=== PATIENT | female | born 1970 | race Caucasian/White ===

== ENCOUNTER 2019-12-16 10:55 | Outpatient (CLI) | payer OTHER, SELFPAY ==
--- NOTE | 2019-12-16 11:09 | MM_ITS ---
WS: [id number] BILATERAL DIGITAL SCREENING MAMMOGRAPHY WITH CAD CLINICAL INFORMATION: SCREENING HISTORY: Screening mammogram. No current complaints. COMPARISON: July 04, 2014 TECHNIQUE: Bilateral CC and MLO views. FINDINGS: Scattered fibroglandular densities bilaterally. No suspicious focal mass, asymmetry, calcifications, or architectural distortion. No evidence of malignancy. MM/[place] [id number] IMPRESSION: BI-RADS: 1-Negative FOLLOW UP: 1 Year Follow-up Recommend return to annual screening mammography.
== END 2019-12-16 10:56 | disposition home or self-care (01) ==
PROVIDERS: PCP Family Medicine; Visit Provider Nurse Practitioner Family
DX: Z12.31 Encounter for screening mammogram for malignant neoplasm of breast (principal)
CPT/HCPCS: 77067

== ENCOUNTER → 2020-08-24 09:24 | Outpatient (BNVA) | payer SELFPAY | PROVIDERS: PCP Family Medicine; Visit Provider Internal Medicine | DX: E03.9 Hypothyroidism, unspecified (principal); E28.2 Polycystic ovarian syndrome; E55.9 Vitamin D deficiency, unspecified; E61.8 Deficiency of other specified nutrient elements; M79.10 Myalgia, unspecified site | CPT/HCPCS: 99205 ==

== ENCOUNTER 2021-05-01 07:55 | Outpatient (CLI) | payer BC, SELFPAY ==
--- NOTE | 2021-05-01 08:00 | USCV_ITS ---
Alivia Gonzalez Age: 51 Gender: F : 1970 Exam Date: 05/01/2021 08:14 Ordering Phys: Naveed Valdez MD ([email or web address]) Technologist: Mahsa Will Exam Location[place] [facility] [place] Indication: SYNCOPE BP: 124 / 70 HR: 48 Rhythm: Other Technical Quality: Adequate MEASUREMENTS (Male / Female) Normal Values 2D ECHO LV Diastolic Diameter PLAX 4.9 cm 4.2 - 5.9 / 3.9 - 5.3 cm LV Systolic Diameter PLAX 3.2 cm IVS Diastolic Thickness 1.1 cm 0.6 - 1.0 / 0.6 - 0.9 cm IVS Systolic Thickness 1.5 cm LVPW Diastolic Thickness 1.6 cm 0.6 - 1.0 / 0.6 - 0.9 cm LVPW Systolic Thickness 1.8 cm LVOT Diameter 2.0 cm LV Ejection Fraction 2D Teich 62.5 % LV Ejection Fraction MOD 2C 53.7 % LV Ejection Fraction 2C AL 53.0 % LA Diameter 3.4 cm LA Width 2.6 cm LA Height 4.1 cm RA Width 2.9 cm RA Height 4.6 cm Aorta at Sinotubular Diameter 2.0 cm M-MODE Aortic Annulus Diameter 2.3 cm LA Ao Ratio MM 1.6 MV E Point Septal Separation 0.4 cm DOPPLER AV Peak Velocity 167.0 cm/s LVOT Peak Velocity 72.0 cm/s AV Area Cont Eq vti 1.3 cm squared AV Area Cont Eq pk 1.4 cm squared MV Area PHT 3.7 cm squared Mitral E to A Ratio 0.6 MV E' Velocity 35.0 cm/s Mitral E to MV E' Ratio 5.9 Mitral E to LV E' Lateral Ratio 5.8 Mitral E to LV E' Septal Ratio 6.0 TR Peak Velocity 238.9 cm/s TR Peak Gradient 22.8 mmHg TR Mean Velocity 204.3 cm/s TR Mean Gradient 17.1 mmHg TR Velocity Time Integral 87.7 cm Right Atrial Pressure 3.0 mmHg Pulmonary Artery Systolic Pressu 25.8 mmHg PV Peak Velocity 98.0 cm/s RV Acceleration Time 0.1 s RV Ejection Time 0.3 s RV AcT/ET 0.4 FINDINGS Left Ventricle Normal left ventricular size and systolic function, EF 62 %. No regional wall motion abnormalities. Right Ventricle The right ventricle is normal in size and function. Right Atrium The right atrium is normal in size. Left Atrium The left atrium is normal in size. Mitral Valve Trace mitral valve regurgitation. Aortic Valve No gross abnormalities noted Tricuspid Valve Trace tricuspid valve regurgitation. Pulmonic Valve No gross abnormalities noted Pericardium Normal pericardium without effusion. Aorta Normal ascending aorta dimension. CONCLUSIONS Normal left ventricular size and systolic function, EF 62 %. No regional wall motion abnormalities. Trace of tricuspid and mitral valve regurgitation. Estimated pulmonary artery peak systolic pressure of 26 mmHg There is no pericardial effusion. There are no intracardiac masses. No previous study is available for comparison. Dr Naveed Valdez MD [facility] (Electronically Signed) Final Date: 01 May 2021 20:42 S
== END 2021-05-01 07:56 | disposition home or self-care (01) ==
LOC: US 07:58
PROVIDERS: PCP Nurse Practitioner Family; Visit Provider Internal Medicine Cardiovascular Disease
DX: R06.00 Dyspnea, unspecified (principal); R55 Syncope and collapse; I08.1 Rheumatic disorders of both mitral and tricuspid valves
CPT/HCPCS: 93306

== ENCOUNTER → 2021-05-10 15:44 | Outpatient (BNVA) | payer BC, SELFPAY | PROVIDERS: PCP Nurse Practitioner Family; Visit Provider Internal Medicine Cardiovascular Disease | DX: R60.9 Edema, unspecified (principal) | CPT/HCPCS: 80048; 83880 ==

== ENCOUNTER 2021-06-28 06:54 | Outpatient (CLI) | payer BC, SELFPAY ==
[2021-06-28 07:20] VITALS: BMI 42.0
--- NOTE | 2021-06-28 07:20 | ECG_ITS ---
[facility] Test Date: 2021-06-28 Pat Name: Alivia Gonzalez Department: Room: Gender: Female Ceramic Design Engineer: Elena Chappell : 1970 Requested By: Naveed Valdez Order Number: [id number] Pushpa MD: Naveed Valdez M.D. Interpretive Statements NAME OF STUDY: EXERCISE SESTAMIBI STRESS TEST INDICATION: Chest Pain, PROCEDURE: The baseline electrocardiogram showed [normal sinus rhythm with some nonspecific T wave changes. Poor R wave progression. Low voltage complexes in the precordial leads at the baseline, the patient's blood pressure was 159/93 mm Hg with a heart rate of sixty-four. The patient exercised for 4 minutes and 54 seconds on a standard [place] protocol. Patient attained a maximum heart rate of 167 beats per minute(97% of the maximum predicted heart rate) with a blood pressure at the peak exercise of 181/112 mm Hg. The EKG at the peak exercise revealed no significant changes. Patient did not have any chest pain or any significant arrhythmis with the exercise Sestamibi was injected 1 minute prior to the peak exercise During the recovery phase, there were no new changes. Blood pressure at the end of the recovery phase was 138/98 mm Hg with a heart rate of 87 per minute. CONCLUSION: 1. No significant EKG changes with the [treadmill exercise 2. No exercise-induced chest pain or cardiac arrhythmia 3. Impaired exercise tolerance, attained a maximum of 7.0 METs 4. Sestamibi/Sestamibi perfusion results pending; see separate report. Electronically Signed On 06-29-2021 11:30:34 FLOATLIGHT POWDER MIXER by Naveed Valdez M.D. [email or web address]/store/[id number]
--- NOTE | 2021-06-28 07:21 | NMCV_ITS ---
NM luke perf SPECT r/s* [id number] Alivia Gonzalez Age: 51 Gender: F : 1970 Exam Date: 06/28/2021 08:05 Ordering Phys: Naveed Valdez MD ([email or web address]) Technologist: LYNNETTE Hinds Exam Location: [facility] Indications: CHEST PAIN STRESS TEST Please see separate stress test report in [facility] for full findings IMAGE PROTOCOL Rest/Stress 1 Exercise Day Radiopharmaceutical Dose (mCi) Administration Site Administered by Rest: Tc-99m 10.7 IV LYNNETTE Marcial Sestamibi Stress:Tc-99m 32.6 IV LYNNETTE Marcial Sestamibi Rest: 28-Jun-2021 60 Discovery 630 Stress: 28-Jun-2021 15 Discovery 630 Radiopharmaceutical was injected at 94 % maximum heart rate. Images obtained in supine and prone position. SPECT RESULTS Technical Quality: Excellent Raw Data Analysis: Normal Image Corrections: No attenuation or motion correction applied Summed Stress Score: 0 Summed Rest Score: 1 Summed Difference Score: 0 PERFUSION FINDINGS Small areas of decreased tracer uptake were noted in the apical region. No significant reversibility was noted in these regions. FUNCTIONAL RESULTS (calculated via Gated SPECT) Stress Image LV EF (%): 82 Stress EDV (mL):76 TID: 0.75 Stress ESV (mL):14 FUNCTIONAL FINDINGS: Segmental wall motion analysis revealing no gross wall motion abnormalities IMPRESSIONS 1. Myocardial perfusion imaging revealing small areas of persistent decreased tracer uptake in the apical regions, most likely representing attenuation artifact. 2. Normal LV ejection fraction of 82%. 3. LV wall motion analysis revealing no gross wall motion abnormalities. 4. Normal LV volume. No significant coronary ischemia, based on the above findings Dr Navede Valdez MD [facility] (Electronically Signed) Final Date: 28 June 2021 20:03 S
[2021-06-28 09:12] VITALS: BP 138/98; PULSE 87
== END 2021-06-28 06:55 | disposition home or self-care (01) ==
LOC: CDL 06:56
PROVIDERS: PCP Nurse Practitioner Family; Visit Provider Internal Medicine Cardiovascular Disease
DX: R06.09 Other forms of dyspnea (principal); R94.31 Abnormal electrocardiogram [ECG] [EKG]; R07.9 Chest pain, unspecified
CPT/HCPCS: 78452; 93017; A9500

== ENCOUNTER 2022-05-01 21:52 | Emergency (ER) | payer BC, SELFPAY ==
[2022-05-01 21:57] VITALS: BP 174/107; PULSE 96; RESP 20; TEMP 36.8; O2SAT 97; BMI 39.3
[2022-05-01 22:11] VITALS: BP 163/99; PULSE 108; RESP 16; O2SAT 96
--- NOTE | 2022-05-01 22:15 | ED_ITS ---
HPI - Allergic Reaction General: Chief complaint: Allergic Reaction Stated complaint: allergic rxn? Time Seen by Provider: 05/01/22 22:09 Source: patient Mode of arrival: ambulatory Limitations: no limitations History of Present Illness: HPI narrative: 52-year-old female states that she been out working cattle elevated readings and noticed about 2 hours ago started having itchiness especially arm and back states she is got worsening urticaria does have urticaria to her whole back states she felt some throat swelling she has no difficulty talking swallowing or speaking here no noticeable throat swelling. She has never had an allergic reaction before denies any worsening proving factors. Associated symptoms: Deny abdominal pain, nausea or vomiting Review of Systems Const: Denies: fever(s), chills, body aches or change in appetite Eyes: Denies: blurry vision or eye discomfort ENMT: Denies: throat pain or dental pain Card: Denies: chest pain Resp: Denies: dyspnea GI: Denies: abdominal pain, nausea, vomiting or diarrhea : Denies: dysuria Musc: Denies: neck pain or back pain Skin/Breast: Reports: rash and pruritus Neuro: Denies: headache(s) Psych: Denies: depression Tanner/Lymph: Denies: easy bruising All/Imm: Denies: urticaria PFSH ED PFSH: Medical History Asthma Hypothyroidism PCOS (polycystic ovarian syndrome) Peripheral edema Syncope and Collapse Surgical History H/O: hysterectomy Family History Mother CAD (coronary artery disease) Diabetes PCOS (polycystic ovarian syndrome) Afib Cancer Hypertension Hypothyroidism Myocardial infarction Father Afib Hypertension Brother Myocardial infarction Diabetes Denies family history of Clotting disorder Dementia Chronic kidney disease (CKD) Suicide Anesthesia complication Bleeding disorder Lung disease Stroke Social History Smoking and tobacco status: never smoked Second hand smoke exposure: No Alcohol intake: current Alcohol type: wine Physical Exam Const: COMMON NORMALS: no acute distress, patient oriented x3 and healthy appearing HENMT: COMMON NORMALS: normocephalic and atraumatic HEAD & SCALP: normocephalic and atraumatic Eye: COMMON NORMALS: Equal, round and reactive pupils present and EOMs intact bilaterally PUPIL: Yes Equal, round and reactive pupils present Neck/C-Spine: COMMON NORMALS: full ROM and supple Chest: COMMONS NORMALS: normal inspection of the chest and normal palpation of entire chest wall Resp: COMMON NORMALS: normal respiratory effort, No retractions, No use of accessory muscles and clear to auscultation bilaterally AUSCULTATION: clear to auscultation bilaterally Cardio: COMMON NORMALS: regular rate, regular rhythm and No murmurs present (Cardio) RATE: regular rate RHYTHM: regular rhythm GI: COMMON NORMALS: Normal to inspection, nondistended, normoactive bowel sounds present, Soft to palpation, non-tender and no masses PALPATION: Yes Soft to palpation Extremity: COMMON NORMALS: normal to inspection and full ROM Neuro: COMMON NORMALS: patient oriented x3, moves all extremities and no focal motor deficits Psych: COMMON NORMALS: mental status grossly normal, Normal thought process present and cooperative THOUGHT PROCESS: Normal thought process present Skin: COMMON NORMALS: no wounds NARRATIVE SKIN EXAM: Urticaria to arm along with back and chest no throat swelling Course Vital Signs: Vital signs: Vital Signs Temperature 98.2 F 05/01/22 21:57 Pulse Rate 113 H 05/01/22 22:27 Respiratory Rate 16 05/01/22 22:27 Blood Pressure 135/91 05/01/22 22:27 Pulse Oximetry 99 05/01/22 22:27 Oxygen Delivery Me thod 05/01/22 21:57 MDM - Allergic Reaction Medical Decision Making Patient presents here with urticarial allergic reaction its improved here she is stable for discharge we will place her on prednisone prescribe her an EpiPen she has no airway involvement she is to follow-up with PCP and return if worsening. Discharge Plan Discharge Patient Disposition: Home Clinical Impression: Allergic reaction, Urticaria Condition: Stable Prescriptions: New prednisone 50 mg tablet 50 mg PO DAILY Qty: 5 0RF epinephrine [Auvi-Q] 0.3 mg/0.3 mL auto-injector 0.3 mg IM Q15M PRN (Reason: anaphylaxis) Qty: 2 0RF Rx Instructions: for 2 doses No Action ascorbate calcium (vitamin C) 500 mg tablet 1.5 g PO DAILY cholecalciferol (vitamin D3) 50 mcg (2,000 unit) capsule 50 mcg PO DAILY levothyroxine [Synthroid] 50 mcg tablet 75 mcg PO DAILY terbinafine HCl 250 mg tablet 250 mg PO DAILY 30 Days Qty: 30 2RF Discharge Orders: Discharge ED (Routine); Ordered 05/01/22 Ordered By: Neal Christianson Referrals: Ramona Lindsay FNP [Primary Care Provider] - 1-3 days Discharge Diet: Advance as tolerated Discharge Activity: Resume usual activity Patient Instructions: Allergic Reaction, Urticaria (ED) Coding Level of Care Code ED Cutter Hand for Chg Fwd Exam Comprehensive
[2022-05-01] MEDS: diphenhydrAMINE 50 mg/mL SDV 1mL IVP (22:21)
[2022-05-01] MEDS: famotidine 20 mg/2 mL INJ 40 MG IVP (22:21)
[2022-05-01] MEDS: EPINEPHrine 1 mg/mL INJ 0.3 MG IM (22:21)
[2022-05-01 22:27] VITALS: BP 135/91; PULSE 113; RESP 16; O2SAT 99
== END 2022-05-01 23:37 | disposition home or self-care (01) ==
PROVIDERS: Emergency Provider Emergency Medicine; PCP Nurse Practitioner Family
DX: T78.40XA Allergy, unspecified, initial encounter (principal); L50.9 Urticaria, unspecified
CPT/HCPCS: 96372; 96374; 96375; 99284; J0171; J1200; J2930; J3490

== ENCOUNTER 2022-10-25 13:48 | Outpatient (CLI) | payer BC, SELFPAY ==
--- NOTE | 2022-10-25 14:11 | MR_ITS ---
WS: [id number] MRI LEFT KNEE HISTORY: POSITIVE YANNI TESTS OF L KNEE COMPARISON: None available. Anterior cruciate ligament: Complete tear ACL. ACL is in a horizontal position along the tibial plate au surface. Posterior cruciate ligament: Intact. Medial collateral ligament: Mild increased signal throughout the MCL consistent with a mild sprain. N o full-thickness tear. Posterior lateral corner structures: Intact. Medial menisci: Small caliber posterior horn with a radial tear in the periphery of the posterior hor n. There is also very small caliber anterior horn with a complex tear. Lateral meniscus: Blunting with irregularity and increased signal in the posterior horn meniscal root . Extensor mechanism: Distal quadriceps tendon and patellar tendons are intact. Fluid and soft tissue: Small joint effusion. Mild soft tissue edema. Moderate-sized Borrego's cyst. Osseous and articular structures: Patellofemoral compartment: Normal. Medial compartment: Mild narrowing of the joint space. Small marginal osteophytes. Mild chondromalaci a. Lateral compartment: Normal. MR/MR knee LT wo con* [id number] IMPRESSION: 1. Complete tear ACL. 2. Small caliber anterior and posterior horns of the medial meniscus. Meniscal tears expected in both the anterior and posterior horns. 3. Additional tear is most likely involving the meniscal root of the posterior horn lateral meniscus. 4. Small joint effusion and small Borrego's cyst.
== END 2022-10-25 13:49 | disposition home or self-care (01) ==
PROVIDERS: PCP Nurse Practitioner Family; Visit Provider Nurse Practitioner
DX: S83.512A Sprain of anterior cruciate ligament of left knee, initial encounter (principal); X58.XXXA Exposure to other specified factors, initial encounter; M71.22 Synovial cyst of popliteal space [Baker], left knee; M25.462 Effusion, left knee
CPT/HCPCS: 73721

== ENCOUNTER → 2022-11-11 08:44 | Outpatient (BNVA) | payer BC, SELFPAY | PROVIDERS: PCP Nurse Practitioner Family; Referring Provider Nurse Practitioner; Visit Provider Specialist | DX: S89.92XA Unspecified injury of left lower leg, initial encounter (principal); S83.512A Sprain of anterior cruciate ligament of left knee, initial encounter; E66.01 Morbid (severe) obesity due to excess calories; Z68.41 Body mass index [BMI] 40.0-44.9, adult; X50.9XXA Other and unspecified overexertion or strenuous movements or postures, initial encounter | CPT/HCPCS: 73560; 73565 ==

== ENCOUNTER 2022-12-12 17:15 | Emergency (ER) | payer BC, SELFPAY ==
[2022-12-12 17:20] VITALS: BP 183/117; PULSE 54; RESP 15; TEMP 36.6; O2SAT 98
--- NOTE | 2022-12-12 17:41 | XRR_ITS ---
PROCEDURE INFORMATION: Exam: XR Chest Exam date and time: 12/12/2022 5:49 PM Age: 52 years old Clinical indication: Pain; Chest pressure; Additional info: Chest pain TECHNIQUE: Imaging protocol: Radiologic exam of the chest. Views: 2 views. COMPARISON: CR XR chest 1V [id number] 04/14/2018 10:40 PM FINDINGS: Lungs: Unremarkable. No consolidation. Pleural spaces: Unremarkable. No pleural effusion. No pneumothorax. Heart/Mediastinum: Unremarkable. No cardiomegaly. Bones/joints: Unremarkable. XR/XR chest 2V* [id number] IMPRESSION: No acute findings.
--- NOTE | 2022-12-12 17:41 | ECG_ITS ---
[facility] Test Date: 2022-12-12 Pat Name: Alivia Gonzalez Department: Room: Gender: Female Laminator Preforms: : 1970 Requested By: Cynthia Menjivar Order Number: [id number] Barrow MD: Leola Church M.D. Measurements Intervals [place] Rate: 52 P: 29 [place]: 129 QRS: -31 QRSD: 93 T: 24 QT: 432 QTc: 403 Interpretive Statements SINUS BRADYCARDIA LEFT AXIS DEVIATION [QRS AXIS < -30] LOW QRS VOLTAGE IN PRECORDIAL LEADS [QRS DEFLECTION < 1.0 mV IN CHEST LEADS] POSSIBLE ANTERIOR MYOCARDIAL INFARCTION , OF INDETERMINATE AGE [30 ms Q WAVE IN V3/V4, OR R < 0.2 mV IN V4] No previous ECG available for comparison Electronically Signed On 12-14-2022 6:03:40 CDT by Leoal Church M.D. [email or web address] [email or web address]/NU/[id number] amador
--- NOTE | 2022-12-12 17:57 | W.ED.GENADLT ---
HPI - General Adult General: Chief complaint: General Medical Stated complaint: cp/right side pain Time Seen by Provider: 12/12/22 17:44 Source: patient Mode of arrival: ambulatory Limitations: no limitations History of Present Illness: 52-year-old female states that she has been having chest pains been a pressure type pain goes into her neck and arm that started this morning. States she also had some slight dyspnea states she has had swelling to her legs and arms and states she feels like she is swollen all over. She denies any fever no history of congestive heart failure she denies any vomiting or diarrhea. Associated symptoms: Reports chest pain and dyspnea; Deny headache(s), nausea, rash or vomiting Review of Systems Const: Denies: fever(s) or chills Eyes: Denies: blurry vision ENMT: Denies: throat pain or dental pain Card: Reports: chest pain Resp: Reports: dyspnea GI: Denies: abdominal pain, nausea, vomiting or diarrhea : Denies: dysuria Musc: Reports: extremity swelling; Denies: neck pain or back pain Skin/Breast: Denies: rash Neuro: Denies: headache(s) PFSH ED PFSH: Medical History Asthma Hypothyroidism PCOS (polycystic ovarian syndrome) Peripheral edema Syncope and Collapse Surgical History H/O: hysterectomy Family History Mother CAD (coronary artery disease) Diabetes PCOS (polycystic ovarian syndrome) Afib Cancer Hypertension Hypothyroidism Myocardial infarction Father Afib Hypertension Brother Myocardial infarction Diabetes Denies family history of Clotting disorder Dementia Chronic kidney disease (CKD) Suicide Anesthesia complication Bleeding disorder Lung disease Stroke Social History Smoking and tobacco status: never smoked Second hand smoke exposure: No Alcohol intake: current Alcohol type: wine Physical Exam Const: COMMON NORMALS: no acute distress and patient oriented x3; negative for healthy appearing HENMT: COMMON NORMALS: normocephalic and atraumatic HEAD & SCALP: normocephalic and atraumatic Eye: COMMON NORMALS: conjunctivae normal CONJUNCTIVA: Yes conjunctivae normal Neck/C-Spine: COMMON NORMALS: full ROM and supple Chest: COMMONS NORMALS: normal inspection of the chest and normal palpation of entire chest wall Resp: COMMON NORMALS: normal respiratory effort, No retractions, No use of accessory muscles and clear to auscultation bilaterally AUSCULTATION: clear to auscultation bilaterally Cardio: COMMON NORMALS: regular rate, regular rhythm and No murmurs present (Cardio) RATE: regular rate RHYTHM: regular rhythm GI: COMMON NORMALS: Normal to inspection, nondistended, normoactive bowel sounds present, Soft to palpation, non-tender and no masses PALPATION: Yes Soft to palpation Extremity: COMMON NORMALS: normal to inspection and full ROM Neuro: COMMON NORMALS: patient oriented x3, moves all extremities and no focal motor deficits Psych: COMMON NORMALS: mental status grossly normal, Normal thought process present and cooperative THOUGHT PROCESS: Normal thought process present Skin: COMMON NORMALS: no rashes or lesions noted and no wounds GENERAL SKIN EXAM: no rashes or lesions noted Course Vital Signs: Vital signs: Vital Signs Temperature 97.9 F 12/12/22 20:43 Pulse Rate 77 12/12/22 20:43 Respiratory Rate 16 12/12/22 20:43 Blood Pressure 163/91 12/12/22 20:43 Pulse Oximetry 98 12/12/22 20:43 Oxygen Delivery Me thod Room Air 12/12/22 17:20 MDM - General Adult Medical Decision Making Patient presents here with chest pains atypical in nature she has been pain-free here her troponins here are normal she does have some high blood pressure we will start her on Norvasc no severe swelling noted here no signs of CHF she is stable for discharge she is to follow-up with PCP and return if worsening she understands agrees to plan. Medical Records I reviewed the patient's medical records. Lab Data I reviewed the patient's lab results. 12/12/22 18:16 12/12/22 18:16 Radiology Impressions Chest X-Ray 12/12/22 17:41 IMPRESSION: No acute findings. Laboratory Results WBC 7.9 10^3/uL (4.0-10.0) 12/12/22 18:16 RBC 4.27 10^6/uL (4.1-5.3) 12/12/22 18:16 Hgb 12.5 g/dL (11.5-15.3) 12/12/22 18:16 Hct 38.0 % (37.0-47.0) 12/12/22 18:16 MCV 89.0 fl (81-99) 12/12/22 18:16 MCH 29.3 pg (28.0-34.0) 12/12/22 18:16 MCHC 32.9 g/dL (30.0-36.0) 12/12/22 18:16 RDW 13.9 % (12.1-15.1) 12/12/22 18:16 Plt Count 252 10^3/cmm (130-400) 12/12/22 18:16 MPV 11.2 fL (7.4-10.4) H 12/12/22 18:16 Neut % (Auto) 60.0 % 12/12/22 18:16 Lymph % (Auto) 27.8 % 12/12/22 18:16 Sullivan % (Auto) 8.2 % 12/12/22 18:16 Eos % (Auto) 2.4 % 12/12/22 18:16 Baso % (Auto) 0.6 % 12/12/22 18:16 Neut # (Auto) 4.76 10^3/uL (1.8-7.7) 12/12/22 18:16 Lymph # (Auto) 2.2 10^3/uL (0.8-4.8) 12/12/22 18:16 Sullivan # (Auto) 0.7 10^3/uL (0.2-0.9) 12/12/22 18:16 Eos # (Auto) 0.2 10^3/uL (0.0-0.8) 12/12/22 18:16 Baso # (Auto) 0.1 10^3/uL (0.0-0.1) 12/12/22 18:16 Nucleated RBC % (auto) 0 % 12/12/22 18:16 Nucleated RBCs # 0.0 /100WBC 12/12/22 18:16 Sodium 137 mmol/L (136-145) 12/12/22 18:16 Potassium 4.5 mmol/L (3.5-5.1) 12/12/22 18:16 Chloride 100 mmol/L (98-107) 12/12/22 18:16 Carbon Dioxide 28 mmol/L (22-29) 12/12/22 18:16 Anion Gap 13.5 (5-19) 12/12/22 18:16 BUN 8 mg/dL (6-20) 12/12/22 18:16 Creatinine 0.7 mg/dL (0.5-0.9) 12/12/22 18:16 GFR Calculation 88.6 mL/min (90-130) L 12/12/22 18:16 Glucose 128 mg/dL (65-115) H 12/12/22 18:16 Calculated Osmolality 284 mOsm/kg (285-295) L 12/12/22 18:16 Calcium 9.3 mg/dL (8.5-10.5) 12/12/22 18:16 Total Bilirubin 0.4 mg/dL (0.15-1.2) 12/12/22 18:16 AST 21 U/L (0-32) 12/12/22 18:16 ALT 25 U/L (0-33) 12/12/22 18:16 Alkaline Phosphatase 71 U/L (35-105) 12/12/22 18:16 Troponin T Baseline 6 ng/L (0-10) 12/12/22 18:16 Troponin T 120 Minute 6.00 ng/L (0-10) 12/12/22 19:58 Delta Troponin T 0 ABS# (0-10) 12/12/22 19:58 NT-Pro-B Natriuret Pep 50 pg/mL (0-125) 12/12/22 18:16 Total Protein 6.9 g/dL (6.6-8.7) 12/12/22 18:16 Albumin 4.1 g/dL (3.5-5.2) 12/12/22 18:16 Globulin 2.8 g/dL (1.3-4.6) 12/12/22 18:16 Imaging Data CXR: I personally reviewed and interpreted this imaging study as follows: My impression: no acute abnormality EKG Data EKG 1: I personally reviewed and interpreted this EKG as follows: EKG interpretation date: 12/12/22 EKG interpretation time: 17:50 Interpretation: sinus kristie hr [address] or t wave abnormalities qrs 93 qtc 411 Computer generated interpretation: Chest X-Ray 12/12/22 17:41 IMPRESSION: No acute findings. EKG 2: I personally reviewed and interpreted this EKG as follows: EKG interpretation date: 12/12/22 EKG interpretation time: 19:47 Interpretation: nsr hr [address] or t wave abnormalities qrs 90 qtc 420 Computer generated interpretation: Chest X-Ray 12/12/22 17:41 IMPRESSION: No acute findings. Discharge Plan Discharge Patient Disposition: Home Clinical Impression: Chest pain, Hypertension Condition: Stable Prescriptions: New Norvasc 5 mg tablet 5 mg PO DAILY Qty: 30 0RF No Action ascorbate calcium (vitamin C) 500 mg tablet 1.5 g PO DAILY cholecalciferol (vitamin D3) 50 mcg (2,000 unit) capsule 50 mcg PO DAILY levothyroxine [Synthroid] 50 mcg tablet 75 mcg PO DAILY ivermectin [Soolantra] 1 % cream 1 applic topical DAILY Qty: 45 2RF Rx Instructions: Apply to face. doxycycline hyclate 100 mg capsule 100 mg PO BID 60 Days Qty: 60 1RF Rx Instructions: Take one capsule twice a day for two months. Auvi-Q 0.3 mg/0.3 mL auto-injector 0.3 mg IM Q15M PRN (Reason: anaphylaxis) Qty: 2 0RF Rx Instructions: for 2 doses Discharge Orders: Discharge ED (Routine); Ordered 12/12/22 Ordered By: Neal Christianson Referrals: Ramona Lindsay FNP [Primary Care Provider] - 1-3 days Discharge Diet: Advance as tolerated Discharge Activity: Resume usual activity Patient Instructions: Chest Pain (ED), Hypertension (ED) Coding Level of Care Code ED Finisher Cold Rolling for Loc Juarez
[2022-12-12 18:27] LABS: Basophils # 0.1 10^3/uL (0.0-0.1); Basophils % 0.6 %; Eosinophils # 0.2 10^3/uL (0.0-0.8); Eosinophils % 2.4 %; Hemoglobin 12.5 g/dL (11.5-15.3); Lymphocytes # 2.2 10^3/uL (0.8-4.8); Lymphocytes % 27.8 %; Mean Corpuscular HGB Conc 32.9 g/dL (30.0-36.0); Mean Corpuscular Hemoglobin 29.3 pg (28.0-34.0); Mean Platelet Volume 11.2 fL (7.4-10.4); Monocytes # 0.7 10^3/uL (0.2-0.9); Monocytes % 8.2 %; Neutrophils # 4.76 10^3/uL (1.8-7.7); Nucleated Red Blood Cells % 0 %; Platelet Count 252 10^3/cmm (130-400); Red Blood Count 4.27 10^6/uL (4.1-5.3); Red Cell Distribution Width 13.9 % (12.1-15.1); White Blood Count 7.9 10^3/uL (4.0-10.0)
[2022-12-12] MEDS: hyDRALAzine 20 mg/mL INJ 1 mL 10 MG IVP (18:41)
[2022-12-12] MEDS: FUROsemide 10 mg/mL SDV 4mL 40 MG IVP (18:41)
[2022-12-12 18:59] LABS: Troponin(5th) Baseline 6 ng/L (0-10)
[2022-12-12 19:07] VITALS: BP 187/86; PULSE 69; RESP 16; O2SAT 97
[2022-12-12 19:09] LABS: Alanine Aminotransferase 25 U/L (0-33); Albumin Level 4.1 g/dL (3.5-5.2); Alkaline Phosphatase 71 U/L (35-105); Anion Gap 13.5 (5-19); Aspartate Amino Transferase 21 U/L (0-32); Blood Urea Nitrogen 8 mg/dL (6-20); Calcium 9.3 mg/dL (8.5-10.5); Carbon Dioxide 28 mmol/L (22-29); Chloride 100 mmol/L (98-107); Globulin 2.8 g/dL (1.3-4.6); Glomerular Filtration Rate 88.6 mL/min (90-130); Glucose 128 mg/dL (65-115); NT Pro B Type Natriuretic Pept 50 pg/mL (0-125); Osmolality Calculated 284 mOsm/kg (285-295); Potassium 4.5 mmol/L (3.5-5.1); Sodium 137 mmol/L (136-145); Total Bilirubin 0.4 mg/dL (0.15-1.2); Total Protein 6.9 g/dL (6.6-8.7)
[2022-12-12 19:30] VITALS: BP 174/94
--- NOTE | 2022-12-12 19:41 | ECG_ITS ---
[facility] Test Date: 2022-12-12 Pat Name: Alivia Gonzalez Department: Room: Gender: Female Facsimile Operator: : 1970 Requested By: Cynthia Menjivra Order Number: [id number] Barrow MD: Leola Church M.D. Measurements Intervals [place] Rate: 63 P: 14 MS: 132 QRS: -43 QRSD: 90 T: 10 QT: 412 QTc: 425 Interpretive Statements SINUS RHYTHM LEFT AXIS DEVIATION [QRS AXIS < -30] LOW QRS VOLTAGE IN PRECORDIAL LEADS [QRS DEFLECTION < 1.0 mV IN CHEST LEADS] PATTERN CONSISTENT WITH PULMONARY DISEASE Compared to ECG 12/12/2022 17:50:20 Sinus bradycardia no longer present Myocardial infarct finding no longer present Electronically Signed On 12-14-2022 6:51:19 CDT by Leola Church M.D. [id number]
[2022-12-12 20:31] VITALS: BP 163/91; PULSE 77; RESP 16; O2SAT 98
[2022-12-12 20:40] LABS: Troponin 5 2HR Delta 0 ABS# (0-10)
[2022-12-12 20:43] VITALS: BP 163/91; PULSE 77; RESP 16; TEMP 36.6; O2SAT 98
== END 2022-12-12 20:45 | disposition home or self-care (01) ==
PROVIDERS: Nurse Practitioner Family; Emergency Provider Emergency Medicine; PCP Nurse Practitioner Family
DX: R07.9 Chest pain, unspecified (principal); I10 Essential (primary) hypertension
CPT/HCPCS: 71046; 80053; 83880; 84484; 85025; 93005; 96374; 96375; 99285; J0360; J1940

== ENCOUNTER → 2023-01-20 16:25 | Outpatient (BNVA) | payer BC, SELFPAY | PROVIDERS: PCP Nurse Practitioner Family; Visit Provider Internal Medicine | DX: E55.9 Vitamin D deficiency, unspecified (principal); E03.9 Hypothyroidism, unspecified | CPT/HCPCS: 36415; 82306; 83516; 84439; 84443; 84480; 86376 ==

== ENCOUNTER 2024-12-14 09:07 | Outpatient (CLI) | payer OTHER, SELFPAY ==
--- NOTE | 2024-12-14 09:14 | MM_ITS ---
WS: [id number] BILATERAL 3D TOMOSYNTHESIS DIGITAL SCREENING MAMMOGRAPHY WITH CAD CLINICAL INFORMATION: SCREENING HISTORY: Screening mammogram. No current complaints. COMPARISON: 2020 TECHNIQUE: Bilateral CC and MLO views. FINDINGS: Scattered fibroglandular densities bilaterally. No suspicious focal mass, asymmetry, calcifications, or architectural distortion. No evidence of malignancy. A few tiny incidental punctate calcifications. MM/MM scr tomosynthesis [id number] IMPRESSION: DENSITY: There are scattered areas of fibroglandular density. BI-RADS: 2 - Benign. FOLLOW UP: 1 Year Follow-up Recommend return to annual screening mammography.
== END 2024-12-14 09:08 | disposition home or self-care (01) ==
LOC: RAD 09:09
PROVIDERS: PCP Nurse Practitioner Family; Visit Provider Advanced Practice Midwife
DX: Z12.31 Encounter for screening mammogram for malignant neoplasm of breast (principal); R92.323 Mammographic fibroglandular density, bilateral breasts
CPT/HCPCS: 77063; 77067

== ENCOUNTER 2025-01-20 08:39 | Outpatient (CLI) | payer OTHER, SELFPAY ==
--- NOTE | 2025-01-20 | MR_ITS ---
WS: [id number] MRI HEAD WITH CONTRAST TECHNIQUE: Sagittal T1, T2 axial, T2 axial FLAIR, axial susceptibility weighted imaging, axial diffusion weighted images, and coronal T2 images were obtained. Pre and post-T1 axial and post T1 coronal images. ADC and FSPGR images. CLINICAL INFORMATION: FACIAL NUMBNESS COMPARISON: None. FINDINGS: No evidence of restricted diffusion to suggest acute ischemia. Few small foci of T2 hyperintensity in the periventricular white matter nonspecific in a patient this age but can be seen with hypertension, diabetes, and small vessel changes. No significant parenchymal volume loss. Normal posterior fossa. Normal vascular flow voids at the skull base. No extra-axial fluid collections. No evidence of mass or mass effect. Paranasal sinuses are well aerated. Retention cyst LEFT maxillary sinus measuring 1.9 cm. Mild mucosal thickening RIGHT mastoid air cells. Normal posterior nasopharynx. No hemosiderin on susceptibility weighted imaging. Normal optic chiasm and pituitary infundibulum. No abnormal gadolinium enhancement. Normal dural venous sinuses. MR/MR head wo/w con [id number] IMPRESSION: 1. No evidence of restricted diffusion. 2. Few small foci of T2 hyperintensity in the periventricular white matter non specific in a patient this age but can be seen with hypertension, diabetes, and small vessel changes. 3. No abnormal gadolinium enhancement. 4. No hemosiderin.
--- NOTE | 2025-01-20 08:42 | USCV_ITS ---
Alivia Gonzalez Age: 54 Gender: F : 1970 Exam Date: 01/20/2025 09:05 Ordering Phys: Ramona Lindsay Technologist: Exam Location: [facility] – [place] Indication: tia Risk Factors: Previous Vascular Surgery: Right Brachial BP: / Left Brachial BP: / Right Left Velocity (cm/s) Spectral Plaque Velocity (cm/s) Spectral Plaque Syst/Diast Broadening Syst/Diast Broadening 123.90/30.30 Prox CCA 144.10/ 46.50 126.10/36.80 Mid CCA / 97.80/ 23.70 Distal CCA 91.90 / 28.70 88.40/ 34.40 Prox ICA 85.80 / 27.90 98.40/ 44.80 Mid ICA 75.10 / 33.10 Hetro 121.90/42.60 Distal ICA 78.60 / 31.30 97.80 ECA 93.70 1.20 ICA/CCA 0.90 Antegrade Vertebral Antegrade 42.60/ 10.50 cm/s 48.80/ 15.60 cm/s Bi Subclavian Bi 59.80 148.6 0 FINDINGS Comparison: none available. No significant elevation of systolic or diastolic velocities. Waveforms are normal. No significant amount of calcified plaque or intimal thickening identified. CONCLUSIONS Normal carotid doppler ultrasound. Dr. June Hodges DO (Electronically Signed) Final Date: 20 January 2025 10:11 S
[2025-01-20] MEDS: gadobenate dimeglumine 20 mL vial IV (09:45)
== END 2025-01-20 08:40 | disposition home or self-care (01) ==
PROVIDERS: PCP Nurse Practitioner Family; Visit Provider Nurse Practitioner Family
DX: R55 Syncope and collapse (principal); R20.0 Anesthesia of skin
CPT/HCPCS: 70553; 93880

== ENCOUNTER 2025-07-27 07:09 | Outpatient (CLI) | payer OTHER, SELFPAY | END 2025-07-27 07:10 | disposition home or self-care (01) | LOC: RT 07:17 | PROVIDERS: PCP Nurse Practitioner Family; Visit Provider Nurse Practitioner Family | DX: J45.41 Moderate persistent asthma with (acute) exacerbation (principal) | CPT/HCPCS: 94010 ==